=== PATIENT | female | born 1945 | race African-American/Black ===

== ENCOUNTER 2023-10-01 15:41 | Inpatient (IN) | payer MEDICARE, MEDICAID ==
[~2023-10-01] VITALS: Ht 167.6 cm; Wt 85.7 kg
[2023-10-01 15:50] VITALS: RESP 18
[2023-10-01] MEDS: PIPERACILLIN/TAZO 3.375G/50ML 50 ML IV ONE (16:00)
[2023-10-01] MEDS: SODIUM CHLORIDE 0.9% 1000ML BAG (SEPSIS BOLUS) IV ONE (16:31)
[2023-10-01 16:34] LABS: CHLORIDE 102 mEq/L (98-107); POTASSIUM 3.7 mEq/L (3.5-5.1); SODIUM 140 mEq/L (136-145)
[2023-10-01 16:35] LABS: CALCIUM 9.6 mg/dL (8.7-10.4); CARBON DIOXIDE 25 mEq/L (21-32)
[2023-10-01 16:37] LABS: LACTIC ACID 3.1 mmol/L (0.4-2.0)
[2023-10-01 16:40] LABS: CREATININE 0.5 mg/dL (0.6-1.0); GLUCOSE 114 mg/dL (70-105); UREA NITROGEN BLOOD 11 mg/dL (9-23)
[2023-10-01 16:41] LABS: BASOPHILS % 0.4 % (0.0-2.0); DIFFERENTIAL COMMENT 0; EOSINOPHILS % 0.2 % (0.0-5.0); HEMATOCRIT. 50.9 % (36.0-48.0); HEMOGLOBIN. 15.6 g/dL (12.0-16.0); LYMPHOCYTES % 18.9 % (20.0-50.0); MEAN CORPUSCULAR HEMOGLOBIN 30.9 pg (28.0-32.0); MEAN CORPUSCULAR HGB CONC 30.7 g/dL (31.0-37.0); MEAN CORPUSCULAR VOLUME 100.7 fL (81.0-99.0); MEAN PLATELET VOLUME 10.2 fl (7.4-10.4); MONOCYTES % 4.7 % (2.0-8.0); NEUTROPHILS % 75.8 % (40.0-76.0); PLATELET 136 x1000/uL (130-400); RED BLOOD CELL COUNT 5.05 mill/uL (4.2-5.4)
[2023-10-01 16:42] LABS: ALANINE AMINOTRANSFERASE 14 IU/L (10-49); ASPARTATE AMINOTRANSFERASE 28 IU/L (<34); BILIRUBIN TOTAL 0.9 mg/dL (0.1-1.0); PROTEIN TOTAL 7.2 g/dL (6.0-8.3)
[2023-10-01 16:44] LABS: TROPONIN I HIGH SENSITIVITY 48 ng/L (3.0-34)
[2023-10-01 18:22] LABS: PROTHROMBIN TIME 30.8 sec (9.6-11.0)
[2023-10-01] MEDS: VANCOMYCIN 1G PREMIX 200 ML IV ONE (18:29)
[2023-10-01 18:30] VITALS: RESP 18
[2023-10-01 19:01] LABS: BG BASE EXCESS 4.2 mmol/L (-2.0-2.0); BG CARBOXYHEMOGLOBIN 0.4 % (0.5-1.5); BG DEOXYHEMOGLOBIN 0.1 % (0.0-5.0); BG FRACTION INSPIRED OXYGEN 100; BG HCO3 ACT 27.7 mmol/L (22.0-26.0); BG METHEMOGLOBIN 0.2 % (0.0-1.5); BG OXYGEN SATURATION 99.9 % (92.0-98.5); BG OXYHEMOGLOBIN 99.3 % (94.0-97.0); BG PCO2 37.9 mmHg (35.0-45.0); BG PH 7.482 (7.350-7.450); BG PO2 478.1 mmHg (75.0-100.0); BG SAMPLE SITE LEFT RADIAL; BG TOTAL HEMOGLOBIN 15.4 g/dL (12.0-18.0); BG VENT MODE MASK - BIPAP
[2023-10-01 20:30] VITALS: RESP 19
[2023-10-01 23:05] VITALS: BP 109/86; PULSE 98; RESP 16; TEMP 37.4744
[2023-10-02] VITALS (15 sets, daily range): BP systolic 94–115; BP diastolic 69–85; PULSE 80–97; RESP 13–21; TEMP 36.78072–37.66968; O2SAT 79–100
[2023-10-02] MEDS ORDERED: ASPI-1406 MT (01:36)
[2023-10-02] MEDS ORDERED: RILU50TA2 PO (01:36)
[2023-10-02] MEDS ORDERED: BACL-141 PO (01:36)
[2023-10-02] MEDS ORDERED: ATOR40TA70 MT (01:36)
[2023-10-02] MEDS ORDERED: LOSA25TA26 MT (01:36)
[2023-10-02] MEDS ORDERED: CALC-769 MT (01:36)
[2023-10-02] MEDS ORDERED: NAPR220C61 PO (01:36)
[2023-10-02] MEDS: ATORVASTATIN CALCIUM 40MG TABLET PO SCH (09:00)
[2023-10-02] MEDS: LOSARTAN 25 MG TABLET PO SCH (09:00)
[2023-10-02] MEDS: ASPIRIN 81MG EC TABLET PO SCH (09:00)
[2023-10-02 10:56] LABS: INR 1.2; PROTHROMBIN TIME 13.5 sec (9.6-11.0)
[2023-10-02 10:59] LABS: CLARITY URINE CLOUDY (CLEAR); COLOR URINE DARK YELLOW (YELLOW); GLUCOSE URINE NEGATIVE (NEGATIVE); KETONES URINE 1+ (NEGATIVE); LEUKOCYTE ESTERASE URINE TRACE (NEGATIVE); NITRITE URINE NEGATIVE (NEGATIVE); OCCULT BLOOD URINE NEGATIVE (NEGATIVE); PROTEIN URINE 1+ (NEGATIVE); SPECIFIC GRAVITY URINE 1.028 (1.005-1.030)
[2023-10-02 11:19] LABS: CALCIUM OXALATE CRYSTALS URINE 2+ /lpf
[2023-10-02 11:20] LABS: BACTERIA URINE FEW; SQUAMOUS EPITHELIAL CELL URINE FEW /lpf (RARE/1+); YEAST URINE NONE SEEN
[2023-10-02] MEDS: SODIUM CHLORIDE 0.9% 1,000 ML IV SCH (11:47)
[2023-10-02 13:44] LABS: TROPONIN I HIGH SENSITIVITY 248 ng/L (3.0-34)
[2023-10-02] MEDS ORDERED: BACLOFEN 10MG TABLET PO SCH (21:00)
[2023-10-03] VITALS (15 sets, daily range): BP systolic 99–134; BP diastolic 66–96; PULSE 87–111; RESP 12–21; TEMP 36.16956–37.00296; O2SAT 94–100
[2023-10-03 06:19] LABS: BASOPHILS % 0.3 % (0.0-2.0); EOSINOPHILS % 0.6 % (0.0-5.0); HEMATOCRIT. 41.7 % (36.0-48.0); HEMOGLOBIN. 13.2 g/dL (12.0-16.0); LYMPHOCYTES % 12.3 % (20.0-50.0); MEAN CORPUSCULAR HEMOGLOBIN 31.1 pg (28.0-32.0); MEAN CORPUSCULAR HGB CONC 31.7 g/dL (31.0-37.0); MEAN PLATELET VOLUME 11.1 fl (7.4-10.4); MONOCYTES % 5.9 % (2.0-8.0); NEUTROPHILS % 80.9 % (40.0-76.0); PLATELET 112 x1000/uL (130-400); RED BLOOD CELL COUNT 4.25 mill/uL (4.2-5.4); RED CELL DISTRIBUTION WIDTH 15.6 % (11.6-14.6); WHITE BLOOD COUNT 6.5 x1000/uL (4.5-11.0)
[2023-10-03 06:22] LABS: CHLORIDE 106 mEq/L (98-107); SODIUM 146 mEq/L (136-145)
[2023-10-03 06:23] LABS: CARBON DIOXIDE 31 mEq/L (21-32)
[2023-10-03 06:24] LABS: CALCIUM 9.1 mg/dL (8.7-10.4)
[2023-10-03 06:28] LABS: GLUCOSE 82 mg/dL (70-105); UREA NITROGEN BLOOD 9 mg/dL (9-23)
[2023-10-03 06:35] LABS: CREATININE 0.3 mg/dL (0.6-1.0)
[2023-10-03 06:38] LABS: POTASSIUM 2.5 mEq/L (3.5-5.1)
[2023-10-03] MEDS: POTASSIUM CHLORIDE 20MEQ TABLET SR PO SCH (08:00)
[2023-10-03] MEDS: DEXT 5%/0.45% NACL 1000ML 1,000 ML IV SCH (09:25)
[2023-10-03] MEDS: KCL 20MEQ/100ML PREMIX 100 ML IV SCH (09:25)
[2023-10-03 09:41] LABS: TROPONIN I HIGH SENSITIVITY 232 ng/L (3.0-34)
[2023-10-03 16:59] LABS: POTASSIUM 3.2 mEq/L (3.5-5.1)
[2023-10-03] MEDS: PIPERACILLIN/TAZO 3.375G/50ML 50 ML IV SCH (17:56)
[2023-10-04] VITALS (11 sets, daily range): BP systolic 101–137; BP diastolic 75–98; PULSE 94–106; RESP 15–20; TEMP 36.3918–37.00296; O2SAT 96–100
[2023-10-04 06:15] LABS: CHLORIDE 108 mEq/L (98-107); SODIUM 147 mEq/L (136-145)
[2023-10-04 06:16] LABS: CARBON DIOXIDE 32 mEq/L (21-32)
[2023-10-04 06:17] LABS: CALCIUM 9.4 mg/dL (8.7-10.4)
[2023-10-04 06:21] LABS: CREATININE 0.3 mg/dL (0.6-1.0); GLUCOSE 125 mg/dL (70-105)
[2023-10-04 06:22] LABS: UREA NITROGEN BLOOD 9 mg/dL (9-23)
[2023-10-04 06:23] LABS: ALBUMIN 3.3 g/dL (3.2-4.8); BASOPHILS % 0.2 % (0.0-2.0); EOSINOPHILS % 0.6 % (0.0-5.0); HEMATOCRIT. 41.1 % (36.0-48.0); HEMOGLOBIN. 13.3 g/dL (12.0-16.0); LYMPHOCYTES % 16.3 % (20.0-50.0); MEAN CORPUSCULAR HEMOGLOBIN 31.4 pg (28.0-32.0); MEAN CORPUSCULAR HGB CONC 32.3 g/dL (31.0-37.0); MEAN CORPUSCULAR VOLUME 97.3 fL (81.0-99.0); MEAN PLATELET VOLUME 9.9 fl (7.4-10.4); MONOCYTES % 5.8 % (2.0-8.0); NEUTROPHILS % 77.1 % (40.0-76.0); PLATELET 113 x1000/uL (130-400); RED BLOOD CELL COUNT 4.22 mill/uL (4.2-5.4); RED CELL DISTRIBUTION WIDTH 15.4 % (11.6-14.6); WHITE BLOOD COUNT 4.9 x1000/uL (4.5-11.0)
[2023-10-04 06:27] LABS: PREALBUMIN < 5.0 mg/dl (10.0-40.0)
[2023-10-04 06:30] LABS: POTASSIUM 2.5 mEq/L (3.5-5.1)
[2023-10-04] MEDS ORDERED: POTASSIUM CHLORIDE 60 MEQ in DEXT 5% WATER 220 ML IV ONE (07:00)
[2023-10-04] MEDS: KCL 20MEQ/100ML PREMIX 100 ML IV SCH (08:23)
[2023-10-04] MEDS: MAGNESIUM 4 G PREMIX 100 ML IV NR (14:22)
[2023-10-04 22:03] LABS: POTASSIUM 3.4 mEq/L (3.5-5.1)
[2023-10-05] VITALS: BP 125/86; PULSE 90; RESP 14; TEMP 36.61404; O2SAT 99
[2023-10-05 03:39] LABS: BASOPHILS % 0.2 % (0.0-2.0); EOSINOPHILS % 1.3 % (0.0-5.0); HEMATOCRIT. 41.2 % (36.0-48.0); HEMOGLOBIN. 13.1 g/dL (12.0-16.0); LYMPHOCYTES % 23.3 % (20.0-50.0); MEAN CORPUSCULAR HEMOGLOBIN 30.9 pg (28.0-32.0); MEAN CORPUSCULAR HGB CONC 31.8 g/dL (31.0-37.0); MEAN CORPUSCULAR VOLUME 97.1 fL (81.0-99.0); MEAN PLATELET VOLUME 10.5 fl (7.4-10.4); MONOCYTES % 8.1 % (2.0-8.0); NEUTROPHILS % 67.1 % (40.0-76.0); PLATELET 119 x1000/uL (130-400); RED BLOOD CELL COUNT 4.24 mill/uL (4.2-5.4); RED CELL DISTRIBUTION WIDTH 15.5 % (11.6-14.6); WHITE BLOOD COUNT 4.4 x1000/uL (4.5-11.0)
[2023-10-05 03:40] LABS: CHLORIDE 109 mEq/L (98-107); POTASSIUM 3.1 mEq/L (3.5-5.1); SODIUM 144 mEq/L (136-145)
[2023-10-05 03:41] LABS: CALCIUM 8.9 mg/dL (8.7-10.4); CARBON DIOXIDE 32 mEq/L (21-32)
[2023-10-05 03:44] LABS: INR 1.2; PROTHROMBIN TIME 13.2 sec (9.6-11.0)
[2023-10-05 03:46] LABS: CREATININE 0.3 mg/dL (0.6-1.0); GLUCOSE 120 mg/dL (70-105); UREA NITROGEN BLOOD 8 mg/dL (9-23)
[2023-10-05 04:00] VITALS: BP 135/92; PULSE 99; RESP 19; TEMP 36.61404; O2SAT 97
[2023-10-05 08:00] VITALS: BP 125/86; PULSE 92; RESP 16; TEMP 36.3918; O2SAT 99
[2023-10-05] MEDS: KCL 20MEQ/100ML PREMIX 100 ML IV SCH (10:35)
[2023-10-05 12:00] VITALS: BP 123/87; PULSE 90; RESP 15; O2SAT 99
[2023-10-05 16:00] VITALS: BP 122/90; PULSE 93; RESP 15; O2SAT 100
[2023-10-05 20:00] VITALS: BP 111/88; PULSE 100; RESP 22; TEMP 36.16956; O2SAT 98
[2023-10-06] VITALS (8 sets, daily range): BP systolic 95–141; BP diastolic 65–103; PULSE 89–102; RESP 14–20; TEMP 36.22512–37.16964; O2SAT 96–99
[2023-10-06 11:33] LABS: BASOPHILS % 0.3 % (0.0-2.0); EOSINOPHILS % 0.7 % (0.0-5.0); HEMATOCRIT. 42.4 % (36.0-48.0); HEMOGLOBIN. 13.5 g/dL (12.0-16.0); LYMPHOCYTES % 31.9 % (20.0-50.0); MEAN CORPUSCULAR HEMOGLOBIN 30.8 pg (28.0-32.0); MEAN CORPUSCULAR HGB CONC 31.8 g/dL (31.0-37.0); MEAN CORPUSCULAR VOLUME 96.9 fL (81.0-99.0); MEAN PLATELET VOLUME 9.8 fl (7.4-10.4); MONOCYTES % 8.3 % (2.0-8.0); NEUTROPHILS % 58.8 % (40.0-76.0); PLATELET 110 x1000/uL (130-400); RED BLOOD CELL COUNT 4.38 mill/uL (4.2-5.4)
[2023-10-06 11:41] LABS: CHLORIDE 106 mEq/L (98-107); POTASSIUM 3.2 mEq/L (3.5-5.1); SODIUM 141 mEq/L (136-145)
[2023-10-06 11:42] LABS: CALCIUM 8.8 mg/dL (8.7-10.4); CARBON DIOXIDE 30 mEq/L (21-32)
[2023-10-06 11:47] LABS: CREATININE 0.3 mg/dL (0.6-1.0); GLUCOSE 117 mg/dL (70-105)
[2023-10-06 11:48] LABS: UREA NITROGEN BLOOD 6 mg/dL (9-23)
[2023-10-06] MEDS: KCL 20MEQ/100ML PREMIX 100 ML IV SCH (12:07)
[2023-10-07] VITALS (11 sets, daily range): BP systolic 105–138; BP diastolic 80–104; PULSE 93–102; RESP 14–20; TEMP 36.55848–37.16964; O2SAT 92–98
[2023-10-07 04:05] LABS: BASOPHILS % 0.4 % (0.0-2.0); EOSINOPHILS % 1.5 % (0.0-5.0); HEMATOCRIT. 40.1 % (36.0-48.0); LYMPHOCYTES % 36.6 % (20.0-50.0); MEAN CORPUSCULAR HEMOGLOBIN 31.2 pg (28.0-32.0); MEAN CORPUSCULAR HGB CONC 32.5 g/dL (31.0-37.0); MEAN CORPUSCULAR VOLUME 96.3 fL (81.0-99.0); MEAN PLATELET VOLUME 9.6 fl (7.4-10.4); MONOCYTES % 8.5 % (2.0-8.0); PLATELET 118 x1000/uL (130-400); RED BLOOD CELL COUNT 4.17 mill/uL (4.2-5.4); RED CELL DISTRIBUTION WIDTH 15.2 % (11.6-14.6); WHITE BLOOD COUNT 4.2 x1000/uL (4.5-11.0)
[2023-10-07 04:15] LABS: INR 1.2; PROTHROMBIN TIME 13.7 sec (9.6-11.0)
[2023-10-07 04:17] LABS: CHLORIDE 106 mEq/L (98-107); POTASSIUM 3.2 mEq/L (3.5-5.1); SODIUM 141 mEq/L (136-145)
[2023-10-07 04:18] LABS: CARBON DIOXIDE 31 mEq/L (21-32)
[2023-10-07 04:19] LABS: CALCIUM 8.8 mg/dL (8.7-10.4)
[2023-10-07 04:23] LABS: GLUCOSE 115 mg/dL (70-105); UREA NITROGEN BLOOD 8 mg/dL (9-23)
[2023-10-07 04:27] LABS: CREATININE 0.4 mg/dL (0.6-1.0)
[2023-10-07] MEDS: KCL 20MEQ/100ML PREMIX 100 ML IV SCH (08:41)
[2023-10-07] MEDS ORDERED: PROPOFOL 200MG/20ML VIAL IV ONE (14:41)
[2023-10-08] VITALS (11 sets, daily range): BP systolic 99–144; BP diastolic 76–107; PULSE 87–106; RESP 15–26; TEMP 36.78072–37.503; O2SAT 94–100
[2023-10-08] MEDS: METOCLOPRAMIDE HCL 10MG/2ML VIAL IV SCH (06:45)
[2023-10-08 11:04] LABS: BG BASE EXCESS 4.1 mmol/L (-2.0-3.0); BG CARBOXYHEMOGLOBIN 0.4 % (0.5-1.5); BG DEOXYHEMOGLOBIN 7.4 % (0.0-5.0); BG FRACTION INSPIRED OXYGEN 21; BG HCO3 ACT 26.8 mmol/L (21.0-28.0); BG OXYGEN SATURATION 92.6 % (94.0-98.0); BG OXYHEMOGLOBIN 92.2 % (94.0-98.0); BG PCO2 34.4 mmHg (32.0-45.0); BG PO2 60.6 mmHg (83.0-108.0); BG SAMPLE SITE RIGHT RADIAL; BG TOTAL HEMOGLOBIN 13.6 g/dL (12.0-16.0); BG VENT MODE ROOM AIR
[2023-10-08 13:20] LABS: CARBON DIOXIDE 27 mEq/L (21-32); CHLORIDE 103 mEq/L (98-107); POTASSIUM 3.5 mEq/L (3.5-5.1); SODIUM 136 mEq/L (136-145)
[2023-10-08 13:21] LABS: CALCIUM 9.2 mg/dL (8.7-10.4)
[2023-10-08 13:24] LABS: BASOPHILS % 0.3 % (0.0-2.0); EOSINOPHILS % 0.7 % (0.0-5.0); HEMATOCRIT. 43.4 % (36.0-48.0); HEMOGLOBIN. 13.8 g/dL (12.0-16.0); LYMPHOCYTES % 29.1 % (20.0-50.0); MEAN CORPUSCULAR HEMOGLOBIN 30.8 pg (28.0-32.0); MEAN CORPUSCULAR HGB CONC 31.8 g/dL (31.0-37.0); MEAN CORPUSCULAR VOLUME 96.8 fL (81.0-99.0); MEAN PLATELET VOLUME 9.4 fl (7.4-10.4); MONOCYTES % 5.3 % (2.0-8.0); NEUTROPHILS % 64.6 % (40.0-76.0); PLATELET 125 x1000/uL (130-400); RED BLOOD CELL COUNT 4.48 mill/uL (4.2-5.4); RED CELL DISTRIBUTION WIDTH 15.2 % (11.6-14.6); WHITE BLOOD COUNT 4.6 x1000/uL (4.5-11.0)
[2023-10-08 13:26] LABS: CREATININE 0.3 mg/dL (0.6-1.0); GLUCOSE 120 mg/dL (70-105); UREA NITROGEN BLOOD 7 mg/dL (9-23)
[2023-10-08] MEDS: ACETAMINOPHEN 650MG/20.3ML UDC PO PRN (21:09)
[2023-10-09] VITALS (7 sets, daily range): BP systolic 78–117; BP diastolic 59–89; PULSE 91–105; RESP 16–33; TEMP 36.3918–37.16964; O2SAT 96–99
[2023-10-09 08:14] LABS: BASOPHILS % 0.4 % (0.0-2.0); EOSINOPHILS % 1.6 % (0.0-5.0); HEMATOCRIT. 36.2 % (36.0-48.0); HEMOGLOBIN. 11.6 g/dL (12.0-16.0); LYMPHOCYTES % 26.9 % (20.0-50.0); MEAN CORPUSCULAR HEMOGLOBIN 31.1 pg (28.0-32.0); MEAN CORPUSCULAR VOLUME 97.2 fL (81.0-99.0); MEAN PLATELET VOLUME 9.4 fl (7.4-10.4); MONOCYTES % 7.9 % (2.0-8.0); NEUTROPHILS % 63.2 % (40.0-76.0); PLATELET 120 x1000/uL (130-400); RED BLOOD CELL COUNT 3.72 mill/uL (4.2-5.4); RED CELL DISTRIBUTION WIDTH 15.1 % (11.6-14.6); WHITE BLOOD COUNT 3.7 x1000/uL (4.5-11.0)
[2023-10-09 08:20] LABS: CALCIUM 8.3 mg/dL (8.7-10.4); CARBON DIOXIDE 29 mEq/L (21-32); CHLORIDE 103 mEq/L (98-107); POTASSIUM 3.1 mEq/L (3.5-5.1); SODIUM 137 mEq/L (136-145)
[2023-10-09 08:26] LABS: GLUCOSE 127 mg/dL (70-105); UREA NITROGEN BLOOD 9 mg/dL (9-23)
[2023-10-09 08:27] LABS: CREATININE 0.4 mg/dL (0.6-1.0)
[2023-10-09] MEDS: MULTIVITAMINS,THER W-MINERALS TABLET PO SCH (09:27)
[2023-10-09] MEDS: ASCORBIC ACID 500 MG TABLET PO SCH (09:28)
[2023-10-10] VITALS: BP 98/70; PULSE 104; RESP 22; TEMP 37.2252; O2SAT 96
[2023-10-10 04:00] VITALS: BP 124/84; PULSE 106; RESP 23; O2SAT 99
[2023-10-10 08:00] VITALS: BP 94/71; PULSE 105; RESP 22; TEMP 37.11408; O2SAT 98
[2023-10-10] MEDS: POTASSIUM CHLORIDE 20MEQ TABLET SR PO NR (09:57)
[2023-10-10] MEDS: SUCRALFATE 1G TABLET GT SCH (11:22)
[2023-10-10 11:51] VITALS: BP 97/73; PULSE 104; RESP 21; TEMP 37.05852; O2SAT 97
[2023-10-10 16:00] VITALS: BP 102/75; PULSE 106; RESP 23; TEMP 37.11408; O2SAT 97
[2023-10-10 20:00] VITALS: BP 109/84; PULSE 109; RESP 25; O2SAT 97
[2023-10-11] VITALS: BP 101/74; PULSE 106; RESP 22; TEMP 36.44736; O2SAT 97
[2023-10-11 04:00] VITALS: BP 103/81; PULSE 105; RESP 22; TEMP 37.00296; O2SAT 98
[2023-10-11 06:19] LABS: CARBON DIOXIDE 30 mEq/L (21-32); CHLORIDE 102 mEq/L (98-107); POTASSIUM 3.7 mEq/L (3.5-5.1); SODIUM 135 mEq/L (136-145)
[2023-10-11 06:20] LABS: CALCIUM 8.6 mg/dL (8.7-10.4)
[2023-10-11 06:24] LABS: CREATININE 0.3 mg/dL (0.6-1.0)
[2023-10-11 06:25] LABS: GLUCOSE 119 mg/dL (70-105)
[2023-10-11 06:26] LABS: UREA NITROGEN BLOOD 9 mg/dL (9-23)
[2023-10-11 06:45] LABS: BASOPHILS % 0.5 % (0.0-2.0); EOSINOPHILS % 1.8 % (0.0-5.0); HEMATOCRIT. 36.2 % (36.0-48.0); HEMOGLOBIN. 11.7 g/dL (12.0-16.0); LYMPHOCYTES % 25.7 % (20.0-50.0); MEAN CORPUSCULAR HEMOGLOBIN 30.9 pg (28.0-32.0); MEAN CORPUSCULAR HGB CONC 32.3 g/dL (31.0-37.0); MEAN CORPUSCULAR VOLUME 95.4 fL (81.0-99.0); MEAN PLATELET VOLUME 9.3 fl (7.4-10.4); MONOCYTES % 6.6 % (2.0-8.0); NEUTROPHILS % 65.4 % (40.0-76.0); PLATELET 149 x1000/uL (130-400); RED BLOOD CELL COUNT 3.79 mill/uL (4.2-5.4); RED CELL DISTRIBUTION WIDTH 15.2 % (11.6-14.6); WHITE BLOOD COUNT 4.3 x1000/uL (4.5-11.0)
[2023-10-11 08:00] VITALS: BP 111/84; PULSE 102; RESP 10; TEMP 36.61404; O2SAT 99
[2023-10-11] MEDS: PANTOPRAZOLE SODIUM 40 MG/VIAL IV SCH (09:23)
[2023-10-11 12:00] VITALS: BP 83/63; PULSE 98; RESP 15; TEMP 36.55848; O2SAT 94
[2023-10-11] MEDS: SODIUM CHLORIDE 0.9% 250 ML IV ONE (12:30)
[2023-10-11 13:04] LABS: BG BASE EXCESS 3.6 mmol/L (-2.0-3.0); BG CARBOXYHEMOGLOBIN 0.5 % (0.5-1.5); BG DEOXYHEMOGLOBIN 2.1 % (0.0-5.0); BG FRACTION INSPIRED OXYGEN 32; BG HCO3 ACT 27.1 mmol/L (21.0-28.0); BG METHEMOGLOBIN 0.3 % (0.5-1.5); BG OXYGEN SATURATION 97.9 % (94.0-98.0); BG OXYHEMOGLOBIN 97.1 % (94.0-98.0); BG PCO2 37.4 mmHg (32.0-45.0); BG PH 7.478 (7.350-7.450); BG PO2 95.1 mmHg (83.0-108.0); BG SAMPLE SITE RIGHT RADIAL; BG TOTAL HEMOGLOBIN 13.7 g/dL (12.0-16.0); BG VENT MODE NASAL CANNULA
[2023-10-11 16:00] VITALS: BP 98/84; PULSE 97; RESP 0; TEMP 36.33624; O2SAT 97
[2023-10-11 20:00] VITALS: BP 98/69; PULSE 98; RESP 17; TEMP 37.00296; O2SAT 99
[2023-10-12] VITALS: BP 96/70; PULSE 95; RESP 17; TEMP 37.00296; O2SAT 100
[2023-10-12 04:00] VITALS: BP 99/71; PULSE 94; RESP 11; TEMP 36.78072; O2SAT 99
[2023-10-12 08:00] VITALS: BP 98/73; PULSE 89; RESP 16; TEMP 36.55848; O2SAT 98
[2023-10-12 12:00] VITALS: BP 95/74; PULSE 88; RESP 15; TEMP 36.50292; O2SAT 97
[2023-10-12 16:00] VITALS: BP 106/79; PULSE 97; RESP 9; TEMP 36.6696; O2SAT 99
[2023-10-12 20:00] VITALS: BP 131/96; PULSE 105; RESP 17; TEMP 36.55848; O2SAT 98
[2023-10-13] VITALS (7 sets, daily range): BP systolic 99–122; BP diastolic 70–100; PULSE 100–115; RESP 0–24; TEMP 36.78072–37.05852; O2SAT 95–100
[2023-10-14] VITALS: BP 108/67; PULSE 101; RESP 21; TEMP 36.89184; O2SAT 96
[2023-10-14 04:00] VITALS: BP 101/68; PULSE 105; RESP 20; TEMP 36.9474; O2SAT 93
[2023-10-14 08:00] VITALS: BP 109/75; PULSE 94; RESP 19; TEMP 36.78072; O2SAT 97
[2023-10-14 12:00] VITALS: BP 109/83; PULSE 96; RESP 21; TEMP 36.89184; O2SAT 97
[2023-10-14 16:00] VITALS: BP 120/89; PULSE 100; RESP 21; TEMP 36.72516; O2SAT 97
[2023-10-14 20:00] VITALS: BP 104/79; PULSE 100; RESP 16; TEMP 36.55848; O2SAT 100
[2023-10-15] VITALS: BP 94/68; PULSE 100; RESP 20; TEMP 36.50292; O2SAT 100
[2023-10-15 04:00] VITALS: BP 103/77; PULSE 95; RESP 0; O2SAT 100
[2023-10-15 08:00] VITALS: BP 117/79; PULSE 99; RESP 13; TEMP 36.50292; O2SAT 100
[2023-10-15 12:00] VITALS: BP 113/74; PULSE 101; RESP 20; TEMP 36.55848; O2SAT 95
[2023-10-15 16:00] VITALS: BP 118/77; PULSE 101; RESP 20; TEMP 36.89184; O2SAT 98
[2023-10-15 20:00] VITALS: BP 121/83; PULSE 101; RESP 18; TEMP 36.16956; O2SAT 97
[2023-10-16] VITALS: BP 125/78; PULSE 104; RESP 18; TEMP 36.3918; O2SAT 97
[2023-10-16 03:59] VITALS: BP 107/64; PULSE 103; RESP 18; TEMP 36.28068; O2SAT 96
[2023-10-16 08:00] VITALS: BP 114/65; PULSE 86; RESP 18; TEMP 36.83628; O2SAT 100
[2023-10-16 12:00] VITALS: BP 120/77; PULSE 102; RESP 21; TEMP 36.44736; O2SAT 99
[2023-10-16 16:00] VITALS: BP 140/95; PULSE 102; RESP 20; TEMP 36.44736; O2SAT 97
[2023-10-16 20:00] VITALS: BP 114/58; PULSE 102; RESP 20; O2SAT 96
[2023-10-17] VITALS: BP 101/63; PULSE 105; RESP 20; O2SAT 96
[2023-10-17 04:00] VITALS: BP 103/66; PULSE 101; RESP 20; O2SAT 95
[2023-10-17 08:00] VITALS: BP 109/68; PULSE 95; RESP 20; TEMP 36.6696; O2SAT 100
[2023-10-17 12:06] VITALS: BP 102/64; PULSE 100; RESP 20; TEMP 36.114; TEMP 36.11400; O2SAT 95
[2023-10-17] MEDS ORDERED: SUCR1TAB30 MT (12:46)
[2023-10-17] MEDS ORDERED: PANT40SU MT (12:46)
[2023-10-17 15:24] VITALS: BP 102/64; PULSE 100; TEMP 97; O2SAT 95
== END 2023-10-17 16:29 | disposition hospice, home (50) | DRG 177 ==
LOC: ER 15:41 → EDBEDREQ 19:40 → EDBEDREQTM 19:40 → EDBEDREQSVC 19:40 → 5EST 19:41 → EDBEDREQSVC 19:41 → EDBEDREQTM 20:02 → 6WST 10-15 11:18
PROVIDERS: ADMIT Internal Medicine; ATTEND Internal Medicine
PROC: 5A09357 Assistance with Respiratory Ventilation, Less than 24 Consecutive Hours, Continuous Positive Airway Pressure (ICD-10-PCS; 2023-10-01)
PROC: 5A09357 Assistance with Respiratory Ventilation, Less than 24 Consecutive Hours, Continuous Positive Airway Pressure (ICD-10-PCS; 2023-10-02)
PROC: 0DH63UZ Insertion of Feeding Device into Stomach, Percutaneous Approach (ICD-10-PCS; principal; 2023-10-07)
PROC: 0DB78ZX Excision of Stomach, Pylorus, Via Natural or Artificial Opening Endoscopic, Diagnostic (ICD-10-PCS; 2023-10-07)
PROC: 5A09357 Assistance with Respiratory Ventilation, Less than 24 Consecutive Hours, Continuous Positive Airway Pressure (ICD-10-PCS; 2023-10-07)
DX: J69.0 Pneumonitis due to inhalation of food and vomit (principal); I21.4 Non-ST elevation (NSTEMI) myocardial infarction; L89.153 Pressure ulcer of sacral region, stage 3; J96.01 Acute respiratory failure with hypoxia; G12.21 Amyotrophic lateral sclerosis; E87.20 Acidosis, unspecified; J98.11 Atelectasis; E46 Unspecified protein-calorie malnutrition; T17.828A Food in other parts of respiratory tract causing other injury, initial encounter; Z20.822 Contact with and (suspected) exposure to COVID-19; I71.20 Thoracic aortic aneurysm, without rupture, unspecified; E87.6 Hypokalemia; Z68.30 Body mass index [BMI] 30.0-30.9, adult; K59.00 Constipation, unspecified; I11.9 Hypertensive heart disease without heart failure; R63.4 Abnormal weight loss; W44.F3XA Food entering into or through a natural orifice, initial encounter; K44.9 Diaphragmatic hernia without obstruction or gangrene; K29.70 Gastritis, unspecified, without bleeding; K26.9 Duodenal ulcer, unspecified as acute or chronic, without hemorrhage or perforation; I25.2 Old myocardial infarction; Y93.89 Activity, other specified; Y92.89 Other specified places as the place of occurrence of the external cause; Y99.8 Other external cause status; Z51.5 Encounter for palliative care
CPT/HCPCS: 36415; 36600; 71045; 80048; 80053; 81003; 82040; 82375; 82805; 82962; 83605; 83735; 83880; 84132; 84134; 84145; 84484; 85025; 87426; 88305; 88312; 88313; 92610; 93005; 93306; 94660; 97162; 97166; 97535; 99291; A6261; J2470; J2543; J2704; J2765; J3370; J3475; J3480; J7030